=== PATIENT | male | born 1940 | race Hispanic/Latino ===

== ENCOUNTER 2017-12-03 11:13 | Inpatient (IN) | payer MEDICARE, OTHER ==
[2017-11-28 12:57] VITALS: BMI 23.5
[2017-12-03] MEDS ORDERED: Verapamil 2 ML ONE (13:12)
[2017-12-03] MEDS ORDERED: Iodixanol 320 MG/ML 200 ML BOTTLE IV ONE (13:13)
[2017-12-03] MEDS ORDERED: Midazolam 2 MG/2 ML VIAL ONE (13:15)
[2017-12-03] MEDS ORDERED: Nitroglycerin 50mg in D5W 50 MG/250 ML BOTTLE IV ONE (13:16)
[2017-12-03] MEDS ORDERED: Lidocaine 2% MPF (5 ml) Inj ONE (13:28)
[2017-12-03] MEDS ORDERED: Heparin25000 units/250ml 1/2NS 25,000 UNITS/250 ML BAG IV PRN (17:15)
--- NOTE | 2017-12-03 17:58 | CP.PCM.HP ---
<Ryland Rosado - Last Filed: 12/03/17 18:42> History of Present Illness - History of Present Illness History of Present Illness: H&P CC "I feel fine" HPI: Patient is a 77 year old male with history of DM, HTN, BPH who was transferred from [place] to [facility] after cardiac catheterization with Dr. Kong today. He was found to have 90% occlusion of LAD, with plan for possible transfer to [facility] for further treatment. Patient is currently comfortable and offers no complaints. He denies fevers, chills, dizziness, headache, chest pain, shortness of breath, abdominal pain, nausea, vomiting, diarrhea, lower extremity pain. He was admitted to [place] for syncopal episode on 11/25/17 after which he fell and hit his head. CT brain revealed no acute intracranial findings. Stress test was positive after which Dr. Kong. ECHO revealed EF on 55-60%. PMH: DM, HTN, BPH, Hypercholesterolemia, multiple falls PSH: left wrist fracture Home meds: Januvia 25mg PO, Levemir 40mg SC, Lovenox 30mg, Norvasc 10mg PO, Coreg 6.25Q12, Cozaar 50mg, Flomax 0.4mg PO Allergies: NKDA PMD: Dr. Ross Thompson Code status: full code Advance directive: none Healthcare proxy: Catrachita, patient's daughter ( ) Present on Admission - Present on Admission Any Indicators Present on Admission: Yes History of DVT/PE: No History of Uncontrolled Diabetes: Yes Review of Systems - Constitutional Constitutional: Frequent Falls. absent: Chills, Fever - Cardiovascular Cardiovascular: absent: Chest Pain, Dyspnea - Respiratory Respiratory: absent: Cough, Dyspnea - Gastrointestinal Gastrointestinal: absent: Abdominal Pain, Nausea, Vomiting - Genitourinary Genitourinary: absent: Difficulty Urinating, Dysuria - Musculoskeletal Musculoskeletal: absent: Back Pain, Neck Pain - Integumentary Integumentary: Lesions - Neurological Neurological: Memory Loss (mild), Syncope - Psychiatric Psychiatric: absent: Anxiety, Depression Past Patient History - Tetanus Immunizations Tetanus Immunization: Unknown - Past Medical History & Family History Past Medical History?: Yes - Past Social History Smoking Status: CIGAR/PIPE - CARDIAC Hx Cardiac Disorders: Yes Hx Hypercholesterolemia: Yes Hx Hypertension: Yes - PULMONARY Hx Respiratory Disorders: No - NEUROLOGICAL Hx Neurological Disorder: Yes Hx Syncope: Yes - HEENT Hx HEENT Problems: No - RENAL Hx Chronic Kidney Disease: No - ENDOCRINE/METABOLIC Hx Endocrine Disorders: Yes Hx Diabetes Mellitus Type 2: Yes - HEMATOLOGICAL/ONCOLOGICAL Hx Blood Disorders: Yes Hx Anemia: Yes Hx Human Immunodeficiency Virus (HIV): No - INTEGUMENTARY Hx Dermatological Problems: No - MUSCULOSKELETAL/RHEUMATOLOGICAL Hx Musculoskeletal Disorders: Yes Hx Falls: Yes Hx Fractures: Yes (Left wrist fx) - GASTROINTESTINAL Hx Gastrointestinal Disorders: No - GENITOURINARY/GYNECOLOGICAL Hx Genitourinary Disorders: Yes Hx Prostate Problems: Yes (BPH) - PSYCHIATRIC Hx Psychophysiologic Disorder: No Hx Substance Use: No - SURGICAL HISTORY Hx Surgeries: Yes Other/Comment: Left wrist surgery - ANESTHESIA Hx Anesthesia: Yes Hx Anesthesia Reactions: No Hx Malignant Hyperthermia: No Meds Allergies/Adverse Reactions: Allergies Allergy/AdvReac Type Severity Reaction Status Date / Time No Known Allergies Allergy Verified 11/25/17 15:40 Physical Exam - Constitutional Appears: Well, No Acute Distress - Head Exam Head Exam: ATRAUMATIC, NORMOCEPHALIC - Eye Exam Eye Exam: EOMI Pupil Exam: PERRL - ENT Exam ENT Exam: Mucous Membranes Moist - Neck Exam Neck exam: Positive for: Full Rom. Negative for: Lymphadenopathy, Tenderness - Respiratory Exam Respiratory Exam: Clear to Auscultation Bilateral, NORMAL BREATHING PATTERN. absent: Rales, Rhonchi, Wheezes, Respiratory Distress, Stridor - Cardiovascular Exam Cardiovascular Exam: REGULAR RHYTHM, +S1, +S2. absent: Systolic Murmur - GI/Abdominal Exam GI & Abdominal Exam: Normal Bowel Sounds, Soft. absent: Firm, Guarding, Hernia , Tenderness - Extremities Exam Extremities exam: Positive for: pedal pulses present. Negative for: calf tenderness, pedal edema Additional comments: Upper extremities: Delayed capillary refill at about 4-5 seconds. Hands noted to be cold Left radial site bandaged with dressing clean dry and intact. Severe onychomycosis of bilateral nails on feet with partial nail avulsion of left big toe - Back Exam Additional comments: Multiple irregular flat nevi with skin tags and seborrheic keratoses noted on back. - Neurological Exam Neurological exam: Alert, Oriented x3 - Psychiatric Exam Psychiatric exam: Normal Affect, Normal Mood - Skin Additional comments: 2 inch by 1.5 inch irregularly shaped and irregular contoured and textured ulcerated skin lesion on right posterolateral lower arm. Results - Labs Labs: Laboratory Results - last 24 hr 12/03/17 16:45 POC Glucose (mg/dL) 155 H Assessment & Plan - Assessment and Plan (Free Text) Assessment: 77 year old male with history of DM, HTN, BPH, HLD, anemia, BPH and multiple falls who is currently s/p cardiac catheterization with Dr. Kong which revealed 90% occlusion of LAD, currently pending transfer to [facility] for further treatment. Plan: CAD S/p cardiac catheterization, 90% occlusion of LAD ASA 81mg PO, Brilinta 90mg Q12 Coreg 6.25mg PO Q12 Losartan 50mg PO May resume heart healthy diet Pending possible transfer to [facility] for further treatment Hypertension Norvasc 10mg PO daily Coreg 6.25mg PO Q12 Losartan 50mg PO Diabetes Levemir 40 SC HS Medium dose ISS On hypoglycemic protocol BPH Flomax 0.4mg continue to monitor urinary output Multiple skin lesions Multiple irregular nevi, skin tags and seborrheic keratoses on back Ulcerated lesion on right posterolateral arm requires dermatology followup outpatient Case discussed with Dr. Hever Magallanes. <Hever Magallanes J - Last Filed: 12/04/17 18:29> Results - Vital Signs Recent Vital Signs: Last Vital Signs Temp 99 F 12/04/17 14:00 Pulse 77 12/04/17 18:02 Resp 16 12/04/17 18:02 BP 130/66 12/04/17 18:02 Pulse Ox 99 12/04/17 10:00 - Labs Result Diagrams: 12/04/17 06:14 12/04/17 06:14 Labs: Laboratory Results - last 24 hr 12/03/17 12/04/17 12/04/17 21:19 00:18 06:14 WBC 4.9 RBC 3.72 L Hgb 10.8 L Hct 32.0 L MCV 86.1 MCH 29.1 MCHC 33.8 RDW 14.4 Plt Count 175 MPV 9.0 Neut % (Auto) 50.8 Lymph % (Auto) 38.0 [place] % (Auto) 7.4 Eos % (Auto) 2.4 Baso % (Auto) 1.4 Neut # (Auto) 2.5 Lymph # (Auto) 1.9 [place] # (Auto) 0.4 Eos # (Auto) 0.1 Baso # (Auto) 0.1 APTT 69 H Sodium Potassium Chloride Carbon Dioxide Anion Gap BUN Creatinine Est GFR ( Amer) Est GFR (Non-Af Amer) POC Glucose (mg/dL) 209 H Random Glucose Calcium Phosphorus Magnesium Total Bilirubin AST ALT Alkaline Phosphatase Total Protein Albumin Globulin Albumin/Globulin Ratio 12/04/17 12/04/17 12/04/17 06:14 06:14 08:08 WBC RBC Hgb Hct MCV MCH MCHC RDW Plt Count MPV Neut % (Auto) Lymph % (Auto) [place] % (Auto) Eos % (Auto) Baso % (Auto) Neut # (Auto) Lymph # (Auto) [place] # (Auto) Eos # (Auto) Baso # (Auto) APTT 90 H D Sodium 136 Potassium 4.9 Chloride 101 Carbon Dioxide 30 Anion Gap 10 BUN 31 H Creatinine 1.4 Est GFR ( Amer) 59 Est GFR (Non-Af Amer) 49 POC Glucose (mg/dL) 142 H Random Glucose 216 H Calcium 8.6 Phosphorus 3.5 Magnesium 1.8 Total Bilirubin 0.2 AST 15 L D ALT 19 L Alkaline Phosphatase 62 Total Protein 4.9 L Albumin 2.5 L Globulin 2.4 Albumin/Globulin Ratio 1.1 12/04/17 11:43 WBC RBC Hgb Hct MCV MCH MCHC RDW Plt Count MPV Neut % (Auto) Lymph % (Auto) [place] % (Auto) Eos % (Auto) Baso % (Auto) Neut # (Auto) Lymph # (Auto) [place] # (Auto) Eos # (Auto) Baso # (Auto) APTT Sodium Potassium Chloride Carbon Dioxide Anion Gap BUN Creatinine Est GFR ( Amer) Est GFR (Non-Af Amer) POC Glucose (mg/dL) 221 H Random Glucose Calcium Phosphorus Magnesium Total Bilirubin AST ALT Alkaline Phosphatase Total Protein Albumin Globulin Albumin/Globulin Ratio Attending/Attestation - Attestation I have personally seen and examined this patient.: Yes I have fully participated in the care of the patient.: Yes I have reviewed all pertinent clinical information: Yes Notes (Text): 12/04/17 18:29 This is a late entry. This patient was seen and examined with the ICU resident after he was brought to the ICU. History, physical, assessment and plan, orders were all gone over with the resident. Hever Magallanes D.O.
--- NOTE | 2017-12-03 17:58 | CP.PCM.CON ---
<Ryland Rosado - Last Filed: 12/03/17 18:51> History of Present Illness - History of Present Illness History of Present Illness: ICU consult note HPI: Patient is a 77 year old male with history of DM, HTN, BPH who was transferred from [place] to [facility] after cardiac catheterization with Dr. Kong today. He was found to have 90% occlusion of LAD, with plan for possible transfer to [place] for further treatment. Patient is currently comfortable and offers no complaints. He denies fevers, chills, dizziness, headache, chest pain, shortness of breath, abdominal pain, nausea, vomiting, diarrhea, lower extremity pain. He was admitted to [place] for syncopal episode on 11/25/17 after which he fell and hit his head. CT brain revealed no acute intracranial findings. Stress test was positive after which Dr. Kong. ECHO revealed EF on 55-60%. PMH: DM, HTN, BPH, Hypercholesterolemia, multiple falls PSH: left wrist fracture Home meds: Januvia 25mg PO, Levemir 40mg SC, Lovenox 30mg, Norvasc 10mg PO, Coreg 6.25Q12, Cozaar 50mg, Flomax 0.4mg PO Allergies: NKDA PMD: Dr. Ross Thompson Code status: full code Advance directive: none Healthcare proxy: Catrachita, patient's daughter ( ) Past Patient History - Tetanus Immunizations Tetanus Immunization: Unknown - Past Medical History & Family History Past Medical History?: Yes - Past Social History Smoking Status: CIGAR/PIPE - CARDIAC Hx Cardiac Disorders: Yes Hx Hypercholesterolemia: Yes Hx Hypertension: Yes - PULMONARY Hx Respiratory Disorders: No - NEUROLOGICAL Hx Neurological Disorder: Yes Hx Syncope: Yes - HEENT Hx HEENT Problems: No - RENAL Hx Chronic Kidney Disease: No - ENDOCRINE/METABOLIC Hx Endocrine Disorders: Yes Hx Diabetes Mellitus Type 2: Yes - HEMATOLOGICAL/ONCOLOGICAL Hx Blood Disorders: Yes Hx Anemia: Yes Hx Human Immunodeficiency Virus (HIV): No - INTEGUMENTARY Hx Dermatological Problems: No - MUSCULOSKELETAL/RHEUMATOLOGICAL Hx Musculoskeletal Disorders: Yes Hx Falls: Yes Hx Fractures: Yes (Left wrist fx) - GASTROINTESTINAL Hx Gastrointestinal Disorders: No - GENITOURINARY/GYNECOLOGICAL Hx Genitourinary Disorders: Yes Hx Prostate Problems: Yes (BPH) - PSYCHIATRIC Hx Psychophysiologic Disorder: No Hx Substance Use: No - SURGICAL HISTORY Hx Surgeries: Yes Other/Comment: Left wrist surgery - ANESTHESIA Hx Anesthesia: Yes Hx Anesthesia Reactions: No Hx Malignant Hyperthermia: No Meds Allergies/Adverse Reactions: Allergies Allergy/AdvReac Type Severity Reaction Status Date / Time No Known Allergies Allergy Verified 11/25/17 15:40 - Medications Medications: Current Medications Aspirin (Aspirin Chewable) 81 mg PO DAILY [facility] Last Admin: 12/03/17 15:50 Dose: 81 mg Heparin Sodium/Sodium Chloride (Heparin 14010 Units/250ml 1/2 Normal Saline) 25 ,000 units in 250 mls @ 6.804 mls/hr IV .Q24H PRN; Protocol; 10 UNITS/KG/HR PRN Reason: PROTOCOL Stop: 12/06/17 17:16 Ticagrelor (Brilinta) 90 mg PO Q12 [facility] Physical Exam - Constitutional Appears: Well, No Acute Distress - Head Exam Head Exam: ATRAUMATIC, NORMOCEPHALIC - Eye Exam Eye Exam: EOMI Pupil Exam: PERRL - ENT Exam ENT Exam: Mucous Membranes Moist - Neck Exam Neck exam: Positive for: Full Rom. Negative for: Lymphadenopathy, Tenderness - Respiratory Exam Respiratory Exam: Clear to Auscultation Bilateral, NORMAL BREATHING PATTERN. absent: Rales, Rhonchi, Wheezes, Respiratory Distress, Stridor - Cardiovascular Exam Cardiovascular Exam: REGULAR RHYTHM, +S1, +S2 - GI/Abdominal Exam GI & Abdominal Exam: Normal Bowel Sounds, Soft. absent: Firm, Guarding, Tenderness - Extremities Exam Extremities exam: Positive for: pedal pulses present. Negative for: calf tenderness, pedal edema Additional comments: Upper extremities: hands felt cold with capillary refill in 4-5 seconds. Left radial site bandaged with dressing clean dry and intact Lower extremities: severe onychomyosis of toenails - Back Exam Additional comments: multiple skin tags, flat nevi and seborrheic keratoses noted on back - Neurological Exam Neurological exam: Alert, Oriented x3 - Psychiatric Exam Psychiatric exam: Normal Affect, Normal Mood - Skin Skin Exam: Dry, Intact, Warm Additional comments: 2 inch by 1.5 inch irregularly shaped and irregular contoured and textured ulcerated skin lesion on right posterolateral lower arm. Results - Labs Labs: Laboratory Results - last 24 hr 12/03/17 16:45 POC Glucose (mg/dL) 155 H Assessment & Plan - Assessment and Plan (Free Text) Assessment: 77 year old male with history of DM, HTN, BPH, HLD, anemia, BPH and multiple falls who is currently s/p cardiac catheterization with Dr. Kong which revealed 90% occlusion of LAD, currently pending transfer to [place] for further treatment. Plan: Neuro: Alert and oriented x3 Cardiovascular S/p cardiac catheterization, 90% occlusion of LAD ASA 81mg PO, Brilinta 90mg Q12 Coreg 6.25mg PO Q12 Losartan 50mg PO Norvasc 10mg PO daily Pending possible transfer to [place] for further treatment Pulmonary: Saturating well on room air GI On heart healthy diet Endo: Hx of uncontrolled Levemir 40 SC HS Medium dose ISS On hypoglycemic protocol Renal BPH Flomax 0.4mg continue to monitor urinary output Strict I &Os Heme Continue to monitor H/H ID: Monitor white count Integumentary: Multiple irregular nevi, skin tags and seborrheic keratoses on back Ulcerated lesion on right posterolateral arm requires dermatology followup outpatient Case discussed with Dr. Makayla Magallanes. <Makayla Magallanes M - Last Filed: 12/04/17 11:36> Meds - Medications Medications: Current Medications Amlodipine Besylate (Norvasc) 10 mg PO DAILY [facility] Last Admin: 12/04/17 10:08 Dose: 10 mg Aspirin (Aspirin Chewable) 81 mg PO DAILY [facility] Last Admin: 12/04/17 10:06 Dose: 81 mg Carvedilol (Coreg) 6.25 mg PO Q12H [facility] Last Admin: 12/04/17 06:22 Dose: 6.25 mg Dextrose (Dextrose 50% Inj) 0 ml IV STAT PRN; Protocol PRN Reason: Hypoglycemia Protocol Dextrose (Glutose 15) 0 gm PO ONCE PRN; Protocol PRN Reason: Hypoglycemia Protocol Glucagon (Glucagen Diagnostic Kit) 0 mg IM STAT PRN; Protocol PRN Reason: Hypoglycemia Protocol Dextrose (Dextrose 5% In Water 1000 Ml) 1,000 mls @ 0 mls/hr IV .Q0M PRN; Protocol; Per Protocol PRN Reason: Hypoglycemia Protocol Heparin Sodium/Sodium Chloride (Heparin 22332 Units/250ml 1/2 Normal Saline) 25 ,000 units in 250 mls @ 8.7 mls/hr IV .Q24H PRN; Protocol; 10 UNITS/KG/HR PRN Reason: ADJUST RATE PER PROTOCOL Last Admin: 12/03/17 18:58 Dose: 10 units/kg/hr, 8.7 mls/hr Insulin Detemir (Levemir) 40 unit SC HS [facility] Last Admin: 12/03/17 21:52 Dose: 40 units Insulin Human Regular (Novolin R) 0 unit SC ACHS [facility] PRN Reason: Protocol Last Admin: 12/04/17 09:23 Dose: Not Given Losartan Potassium (Cozaar) 50 mg PO DAILY [facility] Last Admin: 12/04/17 10:07 Dose: 50 mg Pneumococcal Polyvalent Vaccine (Pneumovax 23 Vaccine) 0.5 ml SC .ONCE ONE Stop: 12/07/17 10:01 Tamsulosin HCl (Flomax) 0.4 mg PO QPM [facility] Ticagrelor (Brilinta) 90 mg PO Q12 [facility] Last Admin: 12/04/17 10:06 Dose: 90 mg Results - Vital Signs Recent Vital Signs: Last Vital Signs Temp 98.2 F 12/04/17 10:00 Pulse 73 12/04/17 10:02 Resp 13 12/04/17 10:02 BP 136/66 12/04/17 10:02 Pulse Ox 100 12/04/17 08:33 - Labs Result Diagrams: 12/04/17 06:14 12/04/17 06:14 Labs: Laboratory Results - last 24 hr 12/03/17 12/03/17 12/04/17 16:45 21:19 00:18 WBC RBC Hgb Hct MCV MCH MCHC RDW Plt Count MPV Neut % (Auto) Lymph % (Auto) [place] % (Auto) Eos % (Auto) Baso % (Auto) Neut # (Auto) Lymph # (Auto) [place] # (Auto) Eos # (Auto) Baso # (Auto) APTT 69 H Sodium Potassium Chloride Carbon Dioxide Anion Gap BUN Creatinine Est GFR ( Amer) Est GFR (Non-Af Amer) POC Glucose (mg/dL) 155 H 209 H Random Glucose Calcium Phosphorus Magnesium Total Bilirubin AST ALT Alkaline Phosphatase Total Protein Albumin Globulin Albumin/Globulin Ratio 12/04/17 12/04/17 12/04/17 06:14 06:14 06:14 WBC 4.9 RBC 3.72 L Hgb 10.8 L Hct 32.0 L MCV 86.1 MCH 29.1 MCHC 33.8 RDW 14.4 Plt Count 175 MPV 9.0 Neut % (Auto) 50.8 Lymph % (Auto) 38.0 [place] % (Auto) 7.4 Eos % (Auto) 2.4 Baso % (Auto) 1.4 Neut # (Auto) 2.5 Lymph # (Auto) 1.9 [place] # (Auto) 0.4 Eos # (Auto) 0.1 Baso # (Auto) 0.1 APTT 90 H D Sodium 136 Potassium 4.9 Chloride 101 Carbon Dioxide 30 Anion Gap 10 BUN 31 H Creatinine 1.4 Est GFR ( Amer) 59 Est GFR (Non-Af Amer) 49 POC Glucose (mg/dL) Random Glucose 216 H Calcium 8.6 Phosphorus 3.5 Magnesium 1.8 Total Bilirubin 0.2 AST 15 L D ALT 19 L Alkaline Phosphatase 62 Total Protein 4.9 L Albumin 2.5 L Globulin 2.4 Albumin/Globulin Ratio 1.1 12/04/17 08:08 WBC RBC Hgb Hct MCV MCH MCHC RDW Plt Count MPV Neut % (Auto) Lymph % (Auto) [place] % (Auto) Eos % (Auto) Baso % (Auto) Neut # (Auto) Lymph # (Auto) [place] # (Auto) Eos # (Auto) Baso # (Auto) APTT Sodium Potassium Chloride Carbon Dioxide Anion Gap BUN Creatinine Est GFR ( Amer) Est GFR (Non-Af Amer) POC Glucose (mg/dL) 142 H Random Glucose Calcium Phosphorus Magnesium Total Bilirubin AST ALT Alkaline Phosphatase Total Protein Albumin Globulin Albumin/Globulin Ratio Assessment & Plan - Assessment and Plan (Free Text) Plan: Above patient seen and examined at bedside Patient post procedure remains hemodynamically stable. -continue rx as per primary team - Date & Time Date: 12/03/17 Time: 21:00
[2017-12-03] MEDS ORDERED: Dextrose 50% SYRINGE Inj (50 ml) IV PRN (18:39)
[2017-12-03] MEDS ORDERED: Glucagon Recombinant 1 mg Inj IM PRN (18:39)
[2017-12-03] MEDS: Heparin25000 units/250ml 1/2NS 25,000 UNITS/250 ML BAG IV PRN (18:58)
[2017-12-03] MEDS: Insulin Detemir 100 units/ml Vial (Levemir) SC SCH (21:52)
[2017-12-03] MEDS: (Novolin R) Insulin Human Regular 100 units/ml vial SC SCH (21:54)
[2017-12-04 06:20] LABS: BASO # 0.1 K/uL (0.0-0.2); BASO % 1.4 % (0.0-2.0); EOS # 0.1 K/uL (0.0-0.7); EOS % 2.4 % (0.0-4.0); HEMOGLOBIN 10.8 g/dL (12.0-18.0); LYMPH # 1.9 K/uL (1.0-4.3); MEAN CELL VOLUME 86.1 fL (80.0-94.0); MEAN CORPUSCULAR HEMOGLOBIN 29.1 pg (27.0-31.0); MEAN CORPUSCULAR HGB CONC 33.8 g/dL (33.0-37.0); MONO # 0.4 K/uL (0.0-0.8); MONO % 7.4 % (0.0-10.0); NEUT # 2.5 K/uL (1.8-7.0); NEUT % 50.8 % (50.0-75.0); RBC 3.72 Mil/uL (4.40-5.90); RED CELL DISTRIBUTION WIDTH 14.4 % (11.5-14.5); WHITE BLOOD COUNT 4.9 K/uL (4.8-10.8)
[2017-12-04 06:47] LABS: ALB/GLOB RATIO 1.1 (1.0-2.1); ALBUMIN 2.5 g/dL (3.5-5.0); CALCIUM 8.6 mg/dl (8.6-10.4)
[2017-12-04] MEDS: (Novolin R) Insulin Human Regular 100 units/ml vial SC SCH ×4 (09:23→21:01)
--- NOTE | 2017-12-04 13:30 | CP.PCM.PN ---
Subjective - Date & Time of Evaluation Date of Evaluation: 12/04/17 Time of Evaluation: 13:15 - Subjective Subjective: Hospitalist Progress Note Patient was seen and examined at 1:15 PM 12/04/17 ICU Bed 14 B Patient is a 77 year old male with history of DM, HTN, BPH who was transferred from [facility] to [facility] for cardiac catheterization with Dr. Kong 12/03/17. He was found to have 90% occlusion of LAD, with plan for possible transfer to [place] for further treatment involving either Cardiac Stent vs CABG. Please note that patient was recently admitted to [facility] for syncopal episode on 11/25/17 after which he fell and hit his head. CT brain revealed no acute intracranial findings. Stress test was positive after which Dr. Kong. ECHO revealed EF on 55-60%. Currently upon ROS offers NO complaints Patient was sleeping comfortably when I entered the room. Upon awakening he did not remember me or the day, date, or year. However after about 10 minutes he became more awake and was fully AAOX3 Exam: General: AAOX3, NAD HEENT: NCA, EOMI, PERRLA, NO cervical/supraclavicular/submandibular lymphadenopathy, NO pharyngeal erythema/exudate, Nasal Turbinates could not be visualized secondary to the abundant nasal hair, Oral Mucosa is moist, Poor dentition with mulitple upper and lower missing teeth. Cardio: NS1 and NS2, NO M/R/G Resp: CTA B/L, NO R/R/W GI: BSx4, Soft, NT, Liver and Splean could not be palpated secondary to Central Obesity, NO guarding/rebound tenderness Ext: Pulses are strong and equal, Capillary Refill is 2 seconds, 1+ Pitting Edema bilateral lowere legs from feet to the tibial tuberosities, bilateral black onychomycosis of the toenails, Right lateral posterior mid lower arm with ulcerated irregularly shaped raised lesion Neuro: CN II through XII are grossly intact Skin: Right lateral posterior mid lower arm with ulcerated irregularly shaped raised lesion, Multiple irregular nevi/skin tags/seborrheic keratoses on back Assessment & Plan - Assessment and Plan (Free Text) Assessment: 77 year old male with history of DM, HTN, BPH, HLD, anemia, BPH and multiple falls who is currently s/p cardiac catheterization with Dr. Kong which revealed 90% occlusion of LAD, currently pending transfer to [place] for further treatment. Plan: CAD S/p cardiac catheterization, 90% occlusion of LAD ASA 81mg PO Q24H Brilinta 90mg Q12H Coreg 6.25mg PO Q12H Losartan 50mg PO Q24H Heparin Drip May resume heart healthy diet Pending possible transfer to [place] for further treatment Hypertension Norvasc 10mg PO daily Coreg 6.25mg PO Q12 Losartan 50mg PO Diabetes 1 Levemir 40 SC HS Medium dose ISS On hypoglycemic protocol BPH Flomax 0.4mg Continue to monitor urinary output Multiple skin lesions Multiple irregular nevi, skin tags and seborrheic keratoses on back Ulcerated lesion on right posterolateral arm He will require full body skin exam and evaluation by Magnetic Testing Technician as outpatient Hever Magallanes D.O. Objective - Vital Signs/Intake and Output Vital Signs (last 24 hours): Temp Pulse Resp BP Pulse Ox 98.2 F 77 15 139/80 100 12/04/17 10:00 12/04/17 12:02 12/04/17 12:02 12/04/17 12:02 12/04/17 08:33 Intake and Output: 12/04/17 12/04/17 06:59 18:59 Intake Total 904.4 1003.5 Output Total 550 300 Balance 354.4 703.5 - Medications Medications: Current Medications Amlodipine Besylate (Norvasc) 10 mg PO DAILY [facility] Last Admin: 12/04/17 10:08 Dose: 10 mg Aspirin (Aspirin Chewable) 81 mg PO DAILY [facility] Last Admin: 12/04/17 10:06 Dose: 81 mg Carvedilol (Coreg) 6.25 mg PO Q12H [facility] Last Admin: 12/04/17 06:22 Dose: 6.25 mg Dextrose (Dextrose 50% Inj) 0 ml IV STAT PRN; Protocol PRN Reason: Hypoglycemia Protocol Dextrose (Glutose 15) 0 gm PO ONCE PRN; Protocol PRN Reason: Hypoglycemia Protocol Glucagon (Glucagen Diagnostic Kit) 0 mg IM STAT PRN; Protocol PRN Reason: Hypoglycemia Protocol Dextrose (Dextrose 5% In Water 1000 Ml) 1,000 mls @ 0 mls/hr IV .Q0M PRN; Protocol; Per Protocol PRN Reason: Hypoglycemia Protocol Heparin Sodium/Sodium Chloride (Heparin 98665 Units/250ml 1/2 Normal Saline) 25 ,000 units in 250 mls @ 8.7 mls/hr IV .Q24H PRN; Protocol; 10 UNITS/KG/HR PRN Reason: ADJUST RATE PER PROTOCOL Last Admin: 12/03/17 18:58 Dose: 10 units/kg/hr, 8.7 mls/hr Insulin Detemir (Levemir) 40 unit SC HS [facility] Last Admin: 12/03/17 21:52 Dose: 40 units Insulin Human Regular (Novolin R) 0 unit SC ACHS [facility] PRN Reason: Protocol Last Admin: 12/04/17 12:21 Dose: 3 u Losartan Potassium (Cozaar) 50 mg PO DAILY [facility] Last Admin: 12/04/17 10:07 Dose: 50 mg Pneumococcal Polyvalent Vaccine (Pneumovax 23 Vaccine) 0.5 ml SC .ONCE ONE Stop: 12/07/17 10:01 Tamsulosin HCl (Flomax) 0.4 mg PO QPM [facility] Ticagrelor (Brilinta) 90 mg PO Q12 [facility] Last Admin: 12/04/17 10:06 Dose: 90 mg - Labs Labs: 12/04/17 06:14 12/04/17 06:14 APTT 90 SECONDS (21-34) H D 12/04/17 06:14
--- NOTE | 2017-12-04 14:40 | CP.PCM.CON ---
History of Present Illness - History of Present Illness History of Present Illness: Consultation for left main disease s/p synope HPI: 77 yo CM with hx of HTN presenting to [facility] for recurrent syncopal episodes and fall. S/p LHCx yesterday showing severe left main disease . Review of Systems - Review of Systems Systems not reviewed;Unavailable: Acuity of Condition - Constitutional Constitutional: As Per HPI - EENT Eyes: As Per HPI Nose/Mouth/Throat: As Per HPI - Cardiovascular Cardiovascular: As Per HPI - Respiratory Respiratory: As Per HPI - Gastrointestinal Gastrointestinal: As Per HPI - Genitourinary Genitourinary: As Per HPI - Reproductive: Male Reproductive:Male: As Per HPI - Musculoskeletal Musculoskeletal: As Per HPI - Integumentary Integumentary: As Per HPI - Neurological Neurological: As Per HPI - Psychiatric Psychiatric: As Per HPI - Endocrine Endocrine: As Per HPI - Hematologic/Lymphatic Hematologic: As Per HPI Past Patient History - Tetanus Immunizations Tetanus Immunization: Unknown - Past Medical History & Family History Past Medical History?: Yes - Past Social History Smoking Status: CIGAR/PIPE - CARDIAC Hx Cardiac Disorders: Yes Hx Hypercholesterolemia: Yes Hx Hypertension: Yes - PULMONARY Hx Respiratory Disorders: No - NEUROLOGICAL Hx Neurological Disorder: Yes Hx Syncope: Yes - HEENT Hx HEENT Problems: No - RENAL Hx Chronic Kidney Disease: No - ENDOCRINE/METABOLIC Hx Endocrine Disorders: Yes Hx Diabetes Mellitus Type 2: Yes - HEMATOLOGICAL/ONCOLOGICAL Hx Blood Disorders: Yes Hx Anemia: Yes Hx Human Immunodeficiency Virus (HIV): No - INTEGUMENTARY Hx Dermatological Problems: No - MUSCULOSKELETAL/RHEUMATOLOGICAL Hx Musculoskeletal Disorders: Yes Hx Falls: Yes Hx Fractures: Yes (Left wrist fx) - GASTROINTESTINAL Hx Gastrointestinal Disorders: No - GENITOURINARY/GYNECOLOGICAL Hx Genitourinary Disorders: Yes Hx Prostate Problems: Yes (BPH) - PSYCHIATRIC Hx Psychophysiologic Disorder: No Hx Substance Use: No - SURGICAL HISTORY Hx Surgeries: Yes Other/Comment: Left wrist surgery - ANESTHESIA Hx Anesthesia: Yes Hx Anesthesia Reactions: No Hx Malignant Hyperthermia: No Meds Allergies/Adverse Reactions: Allergies Allergy/AdvReac Type Severity Reaction Status Date / Time No Known Allergies Allergy Verified 11/25/17 15:40 - Medications Medications: Current Medications Amlodipine Besylate (Norvasc) 10 mg PO DAILY [facility] Last Admin: 12/04/17 10:08 Dose: 10 mg Aspirin (Aspirin Chewable) 81 mg PO DAILY [facility] Last Admin: 12/04/17 10:06 Dose: 81 mg Carvedilol (Coreg) 6.25 mg PO Q12H [facility] Last Admin: 12/04/17 06:22 Dose: 6.25 mg Dextrose (Dextrose 50% Inj) 0 ml IV STAT PRN; Protocol PRN Reason: Hypoglycemia Protocol Dextrose (Glutose 15) 0 gm PO ONCE PRN; Protocol PRN Reason: Hypoglycemia Protocol Glucagon (Glucagen Diagnostic Kit) 0 mg IM STAT PRN; Protocol PRN Reason: Hypoglycemia Protocol Dextrose (Dextrose 5% In Water 1000 Ml) 1,000 mls @ 0 mls/hr IV .Q0M PRN; Protocol; Per Protocol PRN Reason: Hypoglycemia Protocol Heparin Sodium/Sodium Chloride (Heparin 89859 Units/250ml 1/2 Normal Saline) 25 ,000 units in 250 mls @ 8.7 mls/hr IV .Q24H PRN; Protocol; 10 UNITS/KG/HR PRN Reason: ADJUST RATE PER PROTOCOL Last Admin: 12/03/17 18:58 Dose: 10 units/kg/hr, 8.7 mls/hr Insulin Detemir (Levemir) 40 unit SC [facility] Last Admin: 12/03/17 21:52 Dose: 40 units Insulin Human Regular (Novolin R) 0 unit SC [facility] PRN Reason: Protocol Last Admin: 12/04/17 12:21 Dose: 3 u Losartan Potassium (Cozaar) 50 mg PO DAILY [facility] Last Admin: 12/04/17 10:07 Dose: 50 mg Pneumococcal Polyvalent Vaccine (Pneumovax 23 Vaccine) 0.5 ml SC .ONCE ONE Stop: 12/07/17 10:01 Tamsulosin HCl (Flomax) 0.4 mg PO QPM [facility] Ticagrelor (Brilinta) 90 mg PO Q12 [facility] Last Admin: 12/04/17 10:06 Dose: 90 mg Physical Exam - Constitutional Appears: Well - Head Exam Head Exam: ATRAUMATIC, NORMAL INSPECTION, NORMOCEPHALIC - Eye Exam Eye Exam: EOMI, Normal appearance, PERRL Pupil Exam: NORMAL ACCOMODATION, PERRL - ENT Exam ENT Exam: Mucous Membranes Moist, Normal Exam - Neck Exam Neck exam: Positive for: Normal Inspection - Respiratory Exam Respiratory Exam: Clear to Auscultation Bilateral, NORMAL BREATHING PATTERN - Cardiovascular Exam Cardiovascular Exam: REGULAR RHYTHM, Systolic Murmur - GI/Abdominal Exam GI & Abdominal Exam: Normal Bowel Sounds, Soft. absent: Tenderness - Extremities Exam Extremities exam: Positive for: normal inspection - Back Exam Back exam: NORMAL INSPECTION - Neurological Exam Neurological exam: Alert, CN II-XII Intact, Normal Gait, Oriented x3, Reflexes Normal - Psychiatric Exam Psychiatric exam: Normal Affect, Normal Mood - Skin Skin Exam: Dry, Intact, Normal Color, Warm Results - Vital Signs Recent Vital Signs: Last Vital Signs Temp 98.2 F 12/04/17 10:00 Pulse 73 12/04/17 13:32 Resp 19 12/04/17 13:32 BP 137/67 12/04/17 13:32 Pulse Ox 99 12/04/17 10:00 - Labs Result Diagrams: 12/04/17 06:14 12/04/17 06:14 Labs: Laboratory Results - last 24 hr 12/03/17 12/03/17 12/04/17 16:45 21:19 00:18 WBC RBC Hgb Hct MCV MCH MCHC RDW Plt Count MPV Neut % (Auto) Lymph % (Auto) [place] % (Auto) Eos % (Auto) Baso % (Auto) Neut # (Auto) Lymph # (Auto) [place] # (Auto) Eos # (Auto) Baso # (Auto) APTT 69 H Sodium Potassium Chloride Carbon Dioxide Anion Gap BUN Creatinine Est GFR ( Amer) Est GFR (Non-Af Amer) POC Glucose (mg/dL) 155 H 209 H Random Glucose Calcium Phosphorus Magnesium Total Bilirubin AST ALT Alkaline Phosphatase Total Protein Albumin Globulin Albumin/Globulin Ratio 12/04/17 12/04/17 12/04/17 06:14 06:14 06:14 WBC 4.9 RBC 3.72 L Hgb 10.8 L Hct 32.0 L MCV 86.1 MCH 29.1 MCHC 33.8 RDW 14.4 Plt Count 175 MPV 9.0 Neut % (Auto) 50.8 Lymph % (Auto) 38.0 [place] % (Auto) 7.4 Eos % (Auto) 2.4 Baso % (Auto) 1.4 Neut # (Auto) 2.5 Lymph # (Auto) 1.9 [place] # (Auto) 0.4 Eos # (Auto) 0.1 Baso # (Auto) 0.1 APTT 90 H D Sodium 136 Potassium 4.9 Chloride 101 Carbon Dioxide 30 Anion Gap 10 BUN 31 H Creatinine 1.4 Est GFR ( Amer) 59 Est GFR (Non-Af Amer) 49 POC Glucose (mg/dL) Random Glucose 216 H Calcium 8.6 Phosphorus 3.5 Magnesium 1.8 Total Bilirubin 0.2 AST 15 L D ALT 19 L Alkaline Phosphatase 62 Total Protein 4.9 L Albumin 2.5 L Globulin 2.4 Albumin/Globulin Ratio 1.1 12/04/17 12/04/17 08:08 11:43 WBC RBC Hgb Hct MCV MCH MCHC RDW Plt Count MPV Neut % (Auto) Lymph % (Auto) [place] % (Auto) Eos % (Auto) Baso % (Auto) Neut # (Auto) Lymph # (Auto) [place] # (Auto) Eos # (Auto) Baso # (Auto) APTT Sodium Potassium Chloride Carbon Dioxide Anion Gap BUN Creatinine Est GFR ( Amer) Est GFR (Non-Af Amer) POC Glucose (mg/dL) 142 H 221 H Random Glucose Calcium Phosphorus Magnesium Total Bilirubin AST ALT Alkaline Phosphatase Total Protein Albumin Globulin Albumin/Globulin Ratio Assessment & Plan (1) Left main coronary artery disease Assessment and Plan: s/p LHCx IV Heparin asa + brilinta plan for impella assisted PCI of left main on Wednesday Bb statins Status: Acute (2) Acute on chronic kidney failure Status: Acute (3) DM2 (diabetes mellitus, type 2) Status: Acute Priority: High (4) Syncope and collapse Status: Acute
--- NOTE | 2017-12-04 18:27 | CP.PCM.DIS ---
Provider - Provider Date of Admission: 12/03/17 14:23 Attending physician: Hever Magallanes MD Consults: Cardiology Dr. Kong Time Spent in preparation of Discharge (in minutes): 40 Hospital Course - Lab Results Lab Results: Most Recent Lab Values WBC 4.9 K/uL (4.8-10.8) 12/04/17 06:14 RBC 3.72 Mil/uL (4.40-5.90) L 12/04/17 06:14 Hgb 10.8 g/dL (12.0-18.0) L 12/04/17 06:14 Hct 32.0 % (35.0-51.0) L 12/04/17 06:14 MCV 86.1 fL (80.0-94.0) 12/04/17 06:14 MCH 29.1 pg (27.0-31.0) 12/04/17 06:14 MCHC 33.8 g/dL (33.0-37.0) 12/04/17 06:14 RDW 14.4 % (11.5-14.5) 12/04/17 06:14 Plt Count 175 K/uL (130-400) 12/04/17 06:14 MPV 9.0 fL (7.2-11.7) 12/04/17 06:14 Neut % (Auto) 50.8 % (50.0-75.0) 12/04/17 06:14 Lymph % (Auto) 38.0 % (20.0-40.0) 12/04/17 06:14 [place] % (Auto) 7.4 % (0.0-10.0) 12/04/17 06:14 Eos % (Auto) 2.4 % (0.0-4.0) 12/04/17 06:14 Baso % (Auto) 1.4 % (0.0-2.0) 12/04/17 06:14 Neut # (Auto) 2.5 K/uL (1.8-7.0) 12/04/17 06:14 Lymph # (Auto) 1.9 K/uL (1.0-4.3) 12/04/17 06:14 [place] # (Auto) 0.4 K/uL (0.0-0.8) 09/08/18 06:14 Eos # (Auto) 0.1 K/uL (0.0-0.7) 12/04/17 06:14 Baso # (Auto) 0.1 K/uL (0.0-0.2) 12/04/17 06:14 APTT 90 SECONDS (21-34) H D 12/04/17 06:14 Sodium 136 mmol/L (132-148) 12/04/17 06:14 Potassium 4.9 mmol/L (3.6-5.2) 12/04/17 06:14 Chloride 101 mmol/L (98-107) 12/04/17 06:14 Carbon Dioxide 30 mmol/L (22-30) 12/04/17 06:14 Anion Gap 10 (10-20) 12/04/17 06:14 BUN 31 mg/dL (9-20) H 12/04/17 06:14 Creatinine 1.4 mg/dL (0.8-1.5) 12/04/17 06:14 Est GFR ( Amer) 59 12/04/17 06:14 Est GFR (Non-Af Amer) 49 12/04/17 06:14 POC Glucose (mg/dL) 221 mg/dL (65-110) H 12/04/17 11:43 Random Glucose 216 mg/dL (75-110) H 12/04/17 06:14 Calcium 8.6 mg/dl (8.6-10.4) 12/04/17 06:14 Phosphorus 3.5 mg/dL (2.5-4.5) 12/04/17 06:14 Magnesium 1.8 mg/dL (1.6-2.3) 12/04/17 06:14 Total Bilirubin 0.2 mg/dL (0.2-1.3) 12/04/17 06:14 AST 15 U/L (17-59) L D 12/04/17 06:14 ALT 19 U/L (21-72) L 12/04/17 06:14 Alkaline Phosphatase 62 U/L (38-126) 12/04/17 06:14 Total Protein 4.9 g/dL (6.3-8.3) L 12/04/17 06:14 Albumin 2.5 g/dL (3.5-5.0) L 12/04/17 06:14 Globulin 2.4 gm/dL (2.2-3.9) 12/04/17 06:14 Albumin/Globulin Ratio 1.1 (1.0-2.1) 12/04/17 06:14 - Hospital Course Hospital Course: Hospitalist Discharge Summary Patient was seen and examined at 1:15 PM 12/04/17 ICU Bed 14 B Patient is a 77 year old male with history of DM, HTN, BPH who was transferred from [facility] to [facility] for cardiac catheterization with Dr. Kong 12/03/17. He was found to have 90% occlusion of LAD, with plan for possible transfer to [place] for further treatment involving either Cardiac Stent vs CABG. At around 5:30 PM I spoke with Nurse Rodriguez and was notified that patient was accepted at [facility]. EMTALA was completed. Please see Assessment and Plan below for further details Please note that patient was recently admitted to [facility] for syncopal episode on 11/25/17 after which he fell and hit his head. CT brain revealed no acute intracranial findings. Stress test was positive after which Dr. Kong. ECHO revealed EF on 55-60%. Currently upon ROS offers NO complaints Patient was sleeping comfortably when I entered the room. Upon awakening he did not remember me or the day, date, or year. However after about 10 minutes he became more awake and was fully AAOX3 Exam: General: AAOX3, NAD HEENT: NCA, EOMI, PERRLA, NO cervical/supraclavicular/submandibular lymphadenopathy, NO pharyngeal erythema/exudate, Nasal Turbinates could not be visualized secondary to the abundant nasal hair, Oral Mucosa is moist, Poor dentition with mulitple upper and lower missing teeth. Cardio: NS1 and NS2, NO M/R/G Resp: CTA B/L, NO R/R/W GI: BSx4, Soft, NT, Liver and Splean could not be palpated secondary to Central Obesity, NO guarding/rebound tenderness Ext: Pulses are strong and equal, Capillary Refill is 2 seconds, 1+ Pitting Edema bilateral lowere legs from feet to the tibial tuberosities, bilateral black onychomycosis of the toenails, Right lateral posterior mid lower arm with ulcerated irregularly shaped raised lesion Neuro: CN II through XII are grossly intact Skin: Right lateral posterior mid lower arm with ulcerated irregularly shaped raised lesion, Multiple irregular nevi/skin tags/seborrheic keratoses on back Assessment & Plan - Assessment and Plan (Free Text) Assessment: 77 year old male with history of DM, HTN, BPH, HLD, anemia, BPH and multiple falls who is currently s/p cardiac catheterization with Dr. Kong which revealed 90% occlusion of LAD, currently pending transfer to [place] for further treatment. Plan: CAD S/p cardiac catheterization, 90% occlusion of LAD ASA 81mg PO Q24H Brilinta 90mg Q12H Coreg 6.25mg PO Q12H Losartan 50mg PO Q24H Heparin Drip May resume heart healthy diet Pending possible transfer to [place] for further treatment Hypertension Norvasc 10mg PO daily Coreg 6.25mg PO Q12 Losartan 50mg PO Diabetes 1 Levemir 40 SC HS Medium dose ISS On hypoglycemic protocol BPH Flomax 0.4mg Continue to monitor urinary output Multiple skin lesions Multiple irregular nevi, skin tags and seborrheic keratoses on back Ulcerated lesion on right posterolateral arm He will require full body skin exam and evaluation by Field Nurse Case Manager as outpatient Please note that I spoke with patient's Daughter [phone] [place] via phone and informed her that patient was being transferred to [facility] and also notified her of my concerns for the Right Arm Skin Lesion which she stated has been present for the past few months. I have stressed to her the importance of follow up with a Field Nurse Case Manager after he has been stablized from the cardiology perspective. She expressed understanding and stated that there was a Field Nurse Case Manager that lives near her that she will have her father follow up with. Hever Magallanes D.O. Discharge Exam - Head Exam Head Exam: ATRAUMATIC, NORMAL INSPECTION, NORMOCEPHALIC Discharge Plan - Follow Up Plan Condition: GOOD Disposition: HOME/ ROUTINE
[2017-12-04 20:03] VITALS: O2SAT 100
[2017-12-04] MEDS: Heparin25000 units/250ml 1/2NS 25,000 UNITS/250 ML BAG IV PRN (20:40)
[2017-12-04] MEDS: Insulin Detemir 100 units/ml Vial (Levemir) SC SCH (21:00)
[2017-12-04 21:39] VITALS: BP 130/63; PULSE 70; RESP 20; TEMP 98.4
[2017-12-07] MEDS ORDERED: Pneumococcal 23-Valent Vaccine SC ONE (10:00)
--- NOTE | 2018-01-04 01:26 | CARDCATH ---
PROCEDURE DATE: 12/03/2017 INDICATION: Beto Zamora is a pleasant gentleman who was transferred over from [facility] for positive stress test and recurrent episodes of syncope, underwent a cardiac catheterization via radial approach. ANGIOGRAPHIC FINDINGS: RCA, mild nonobstructive disease, large-sized vessel gives off PDA and PLV branches. Left main is a large -sized vessel, has a proximal 80% stenosis, bifurcation to LAD and circumflex. LAD is a large-sized vessel, gives off one medium-sized diagonal branch. Left circumflex is a large-sized vessel which gives off a large obtuse marginal branch and runs in the AV groove is a small sized vessel. IMPRESSION: Severe left main disease. RECOMMENDATIONS: The patient is to be transferred to [place] for of the left main disease. Max Kong MD
== END 2017-12-04 21:20 | disposition short-term general hospital (02) | DRG 287 ==
LOC: C.CATHLAB 11:13 → C.9I 14:23
PROVIDERS: ADMIT Family Medicine; ATTEND Family Medicine
PROC: 4A023N7 Measurement of Cardiac Sampling and Pressure, Left Heart, Percutaneous Approach (ICD-10-PCS; principal; 2017-12-03)
PROC: B211YZZ Fluoroscopy of Multiple Coronary Arteries using Other Contrast (ICD-10-PCS; 2017-12-03)
PROC: B215YZZ Fluoroscopy of Left Heart using Other Contrast (ICD-10-PCS; 2017-12-03)
DX: I25.10 Atherosclerotic heart disease of native coronary artery without angina pectoris (principal); N17.9 Acute kidney failure, unspecified; E11.22 Type 2 diabetes mellitus with diabetic chronic kidney disease; I12.9 Hypertensive chronic kidney disease with stage 1 through stage 4 chronic kidney disease, or unspecified chronic kidney disease; N18.9 Chronic kidney disease, unspecified; N40.0 Benign prostatic hyperplasia without lower urinary tract symptoms; E78.00 Pure hypercholesterolemia, unspecified; R55 Syncope and collapse; Z79.4 Long term (current) use of insulin